=== PATIENT | female | born 1970 | race Hispanic/Latino ===

== ENCOUNTER 2021-01-01 12:39 | Emergency (ER) | payer OTHER ==
[2021-01-01] MEDS ORDERED: Ibuprofen 200 MG TAB ONE (14:15)
== END 2021-01-01 14:25 | disposition home or self-care (01) ==
LOC: ERS 12:39
DX: S63.074A Dislocation of distal end of right ulna, initial encounter (principal); I10 Essential (primary) hypertension; F17.210 Nicotine dependence, cigarettes, uncomplicated; Z79.899 Other long term (current) drug therapy; E11.9 Type 2 diabetes mellitus without complications; Z79.84 Long term (current) use of oral hypoglycemic drugs; X50.9XXA Other and unspecified overexertion or strenuous movements or postures, initial encounter